=== PATIENT | male | born 1990 ===

== ENCOUNTER 2021-08-10 13:48 | Emergency (ER) | payer SELFPAY ==
[2021-08-10] MEDS ORDERED: MORPHINE 4 MG/1 ML INJ IM ONE (14:11)
[2021-08-10] MEDS ORDERED: ONDANSETRON 4 MG ODT TAB PO ONE (14:11)
[2021-08-10 14:13] VITALS: BP 146/64
--- NOTE | 2021-08-10 16:19 | Emergency Department Report ---
ED Upper Extremity Inj HPI - General Chief Complaint: Extremity Injury, Upper Stated Complaint: LT BROKEN WRIST Time Seen by Provider: 08/10/21 14:27 Source: patient Mode of arrival: Ambulatory Limitations: No Limitations - History of Present Illness Initial Comments: PT PRESENTS TO ED WITH LEFT ARM INJURY MD Complaint: Injury to:: left -: Sudden, hour(s) Other Extremity Injury: Wrist: Left Place: home Severity scale (0 -10): 5 Improves With: none - Related Data Previous Rx's Medication Instructions Recorded Last Taken Type HYDROcodone/ACETAMINOPHEN 1 each PO BID #14 08/10/21 Unknown Rx [Hydrocodone-Acetamin 5-300 mg] Allergies Allergy/AdvReac Type Severity Reaction Status Date / Time No Known Allergies Allergy Verified 08/10/21 14:10 ED Review of Systems ROS: Stated complaint: LT BROKEN WRIST Other details as noted in HPI Constitutional: denies: chills, fever Eyes: denies: eye pain, eye discharge, vision change ENT: denies: ear pain, throat pain Respiratory: denies: cough, shortness of breath, wheezing Cardiovascular: denies: chest pain, palpitations Endocrine: no symptoms reported Gastrointestinal: denies: abdominal pain, nausea, diarrhea Genitourinary: denies: urgency, dysuria Musculoskeletal: denies: back pain, joint swelling, arthralgia Skin: denies: rash, lesions Neurological: denies: headache, weakness, paresthesias Psychiatric: denies: anxiety, depression Hematological/Lymphatic: denies: easy bleeding, easy bruising ED Past Medical Hx - Past Medical History Previous Medical History?: No Hx Hypertension: No - Medications Home Medications: Home Medications Medication Instructions Recorded Confirmed Last Taken Type HYDROcodone/ACETAMINOPHEN 1 each PO BID #14 08/10/21 Unknown Rx [Hydrocodone-Acetamin 5-300 mg] ED Physical Exam - General Limitations: No Limitations General appearance: alert, in no apparent distress - Head Head exam: Present: atraumatic, normocephalic - Eye Eye exam: Present: normal appearance - ENT ENT exam: Present: mucous membranes moist - Neck Neck exam: Present: normal inspection - Respiratory Respiratory exam: Present: normal lung sounds bilaterally. Absent: respiratory distress - Cardiovascular Cardiovascular Exam: Present: regular rate, normal rhythm. Absent: systolic murmur, diastolic murmur, rubs, gallop - GI/Abdominal GI/Abdominal exam: Present: soft, normal bowel sounds - Rectal Rectal exam: Present: deferred - Extremities Exam Extremities exam: Present: normal inspection - Expanded Upper Extremity Exam Left Hand Wrist exam: Present: tenderness, swelling, deformity - Back Exam Back exam: Present: normal inspection - Neurological Exam Neurological exam: Present: alert, oriented X3 - Psychiatric Psychiatric exam: Present: normal affect, normal mood - Skin Skin exam: Present: warm, dry, intact, normal color. Absent: rash ED Course Vital Signs 08/10/21 14:11 Temperature 98 F Pulse Rate 84 Respiratory 16 Rate Blood Pressure 146/64 [Left] O2 Sat by Pulse 96 Oximetry Critical care attestation.: If time is entered above; I have spent that time in minutes in the direct care of this critically ill patient, excluding procedure time. ED Disposition Clinical Impression: Fracture of left distal radius Disposition: 01 HOME / SELF CARE / HOMELESS Is pt being admited?: No Does the pt Need Aspirin: No Condition: Stable Instructions: Cast or Splint Care, Adult, [id number], Radial Head Fracture Referrals: PRIMARY MD JOSE [Primary Care Provider] - 3-5 Days THIEN PEÑA MD [Staff Physician] - 3-5 Days
[2021-08-10] MEDS ORDERED: HYDROcodone/ACETAMINOPHEN 5-325 MG TAB PO ONE (16:55)
--- NOTE | 2021-08-11 08:18 | XRay Report ---
LEFT WRIST 3 VIEW(S) INDICATION / CLINICAL INFORMATION: fall, pain and swelling COMPARISON: None available. FINDINGS: BONES / JOINT(S): Comminuted, intra-articular fracture of the distal radius with mild displacement of the distal fracture fragments dorsally. There is an additional mildly displaced fracture of the ulna r styloid process. Orthopedic surgery follow-up with likely be of benefit. No significant arthritis. SOFT TISSUES: Moderate soft tissue swelling about the fracture site. ADDITIONAL FINDINGS: None. Signer Name: Hussain Smith MD Signed: 08/10/2021 2:40 PM Workstation Name: [id number]
== END 2021-08-10 17:13 | disposition home or self-care (01) ==
LOC: ED 13:48
DX: S52.502A Unspecified fracture of the lower end of left radius, initial encounter for closed fracture (principal); X58.XXXA Exposure to other specified factors, initial encounter; Y93.89 Activity, other specified; Y92.89 Other specified places as the place of occurrence of the external cause; Y99.8 Other external cause status
CPT/HCPCS: 73110; 96372; 99283; J2270; J3490; Q0162